=== PATIENT | female | born 1965 | race Caucasian/White ===

== ENCOUNTER → 2016-07-12 | Outpatient (CLI) | payer BC ==
[~2016-07-12] MED LIST: AUGMENTIN 875 M1 TAB PO; NEXIUM40 MG PO
== END | disposition home or self-care (01) ==
LOC: RAD 10:55
DX: M16.11 Unilateral primary osteoarthritis, right hip (principal); M16.12 Unilateral primary osteoarthritis, left hip; M79.604 Pain in right leg

== ENCOUNTER → 2016-07-21 | Outpatient (CLI) | payer BC | END | disposition home or self-care (01) | LOC: US 15:30 | DX: M79.89 Other specified soft tissue disorders (principal) ==

== ENCOUNTER → 2016-12-22 | Outpatient (CLI) | payer BC ==
[2016-12-22 09:35] LABS: HEMOGLOBIN 12.7 g/dl (12.0-16.0); MEAN CELL VOLUME 91.1 fl (81.0-99.0); MEAN CORPUSCULAR HGB 29.7 pg (27.0-31.0); MEAN CORPUSCULAR HGB CONC 32.6 g/dl (33.0-37.0); MEAN PLATELET VOLUME 9.9 fl (9.6-12.3); RED BLOOD COUNT 4.28 10*6/uL (4.10-5.10); RED CELL DISTRI WIDTH 13.2 % (0-14.5); WHITE BLOOD COUNT 5.8 10*3/uL (4.8-10.8)
[2016-12-22 10:48] LABS: ALBUMIN 3.3 gm/dl (3.1-4.5); BUN 13 mg/dl (7-24); CHLORIDE 107 mmol/L (98-107); CHOLESTEROL 194 mg/dL (<200); CREATININE 0.65 mg/dL (0.55-1.02); POTASSIUM 4.2 mmol/L (3.5-5.1); SGOT/AST 13 IU/L (3-35); SGPT/ALT 25 U/L (12-78); SODIUM 140 mmol/L (136-145); TOTAL PROTEIN 6.6 gm/dL (6.4-8.2); TRIGLYCERIDES 130 mg/dl (<150); VLDL CHOLESTEROL 26 mg/dL (6-40)
[2016-12-22 10:54] LABS: ALKALINE PHOSPHATASE 67 U/L (45-117); HDL CHOLESTEROL 66 mg/dl (40-60); LDL CHOLESTEROL 102 mg/dL (9-159)
[2016-12-22 12:09] LABS: VITAMIN D, 25-HYDROXY 10.3 ng/mL (30-100)
== END | disposition home or self-care (01) ==
LOC: LAB 09:07
DX: M25.551 Pain in right hip (principal); M25.552 Pain in left hip; E55.9 Vitamin D deficiency, unspecified; E66.8 Other obesity; M46.1 Sacroiliitis, not elsewhere classified; T73.2XXA Exhaustion due to exposure, initial encounter

== ENCOUNTER → 2017-08-11 | Outpatient (CLI) | payer BC | END | disposition home or self-care (01) | LOC: MAMMO 01:13 | DX: Z12.39 Encounter for other screening for malignant neoplasm of breast (principal) ==

== ENCOUNTER → 2017-08-20 | Outpatient (CLI) | payer BC | END | disposition home or self-care (01) | LOC: US 00:42 | DX: N63.20 Unspecified lump in the left breast, unspecified quadrant (principal) ==

== ENCOUNTER → 2018-10-05 | Outpatient (CLI) | payer BC | END | disposition home or self-care (01) | LOC: MAMMO 09-21 16:20 | DX: Z12.31 Encounter for screening mammogram for malignant neoplasm of breast (principal) ==

== ENCOUNTER → 2019-12-07 | Outpatient (CLI) | payer BC | END | disposition home or self-care (01) | LOC: MAMMO 11-28 08:30 | PROVIDERS: ATTEND Family Medicine | DX: Z12.31 Encounter for screening mammogram for malignant neoplasm of breast (principal); N63.24 Unspecified lump in the left breast, lower inner quadrant ==